=== PATIENT | male | born 1980 | race Caucasian/White ===

== ENCOUNTER → 2023-04-10 | Outpatient (CLI) | payer OTHER, SELFPAY ==
[2023-04-10 12:20] LABS: Absolute Lymphocyte Count 2.61 X10^3/uL (0.83-4.51); Absolute Neutrophil Count 3.3 X10^3/uL (2.0-7.7); Basophil# 0.03 X10^3/uL; Basophil% 0.4 % (0-1); Eosinophil# 0.11 X10^3/uL; Eosinophils% 1.6 % (0-5); Hematocrit 43.6 % (40-54); Hemoglobin 14.7 g/dL (13.0-16.5); Lymphocyte # 2.61 X10^3/ul (0.83-4.51); Lymphocyte % 39.1 % (19-41); Mean Corp Hgb Conc 33.7 g/dL (32-36); Mean Corpuscular Hgb 30.7 pg (27.0-32.0); Mean Platelet Vol. 9.3 fl (6.2-12.0); Monocyte# 0.58 X10^3/uL; Monocyte% 8.7 % (0-10); NRBC Flagged by Analyzer 0 % (0-5); Neutrophil # 3.33 X10^3/uL (2.7-7.7); Neutrophil % 50.1 % (47-70); Platelet Count 188 K/mm3 (150-450); RBC Distribution Width CV 12.4 % (11.6-14.6); RBC Distribution Width SD 41.5 fl (35.1-43.9); Red Blood Count 4.79 M/mm3 (4.6-6.2); White Blood Count 6.7 K/mm3 (4.4-11.0)
[2023-04-10 12:54] LABS: Vitamin D,25 Hydroxy 23.4 ng/mL
[2023-04-10 12:56] LABS: ALB/GLOB Ratio 1.1 RATIO (0.9-2.4); AST(SGOT) 33 U/L (15-37); Alanine Aminotransfer ALT/SGPT 64 U/L (16-61); Albumin, Serum 3.8 g/dL (3.2-5.0); Alkaline Phosphatase 36 U/L (45-117); Anion Gap 6 (5-15); BUN 16 mg/dL (7-18); BUN/Creat Ratio 14.3 RATIO (10-20); Calcium,Total 9.4 mg/dL (8.5-10.1); Chloride 106 mmol/L (98-107); Cholesterol 179 mg/dL (200); Creatinine, Serum 1.12 mg/dL (0.70-1.30); EST Glomerular Filtration Rate 76 mL/min (>60); Est Glom Filt Rate - Afr Amer 92 mL/min (>60); Globulin 3.5 g/dL (2.2-4.2); Glucose 94 mg/dL (74-106); High Density Lipoprotein 35 mg/dL; Potassium 4.3 mmol/L (3.5-5.1); Protein, Total 7.3 g/dL (6.4-8.2); Sodium Level 139 mmol/L (136-145); Triglycerides 295 mg/dL; Very Low Density Lipoprotein 59 mg/dL (5-40)
== END | disposition home or self-care (01) ==
LOC: LAB 11:51
PROVIDERS: PCP Internal Medicine; Visit Provider Internal Medicine
DX: Z00.00 Encounter for general adult medical examination without abnormal findings (principal); Z13.220 Encounter for screening for lipoid disorders; E55.9 Vitamin D deficiency, unspecified
CPT/HCPCS: 36415; 80053; 80061; 82306; 85025

== ENCOUNTER → 2023-05-08 | Outpatient (CLI) | payer OTHER, SELFPAY ==
[2023-05-08 15:02] LABS: Bacteria 0 SEEN /hpf (None Seen); Mucous, Urine 0 SEEN /hpf (<or=2+); Red Blood Cells-Urine 0 SEEN /hpf (0-5); Squamous Epithelial Cells - UA 0 SEEN /hpf (0-5); White Blood Cells 0 SEEN /hpf (0-5)
--- NOTE | 2023-05-08 15:11 | CT_ITS ---
STUDY: CT ABDOMEN AND PELVIS WITH CONTRAST REASON FOR EXAM: Male, 43 years old. Abdominal pain RADIATION DOSAGE (If Supplied By Facility): CTDIvol = ( 17.56 ) mGy, DLP = ( 1393.98 ) mGycm TECHNIQUE: Oral and amp; IV Gastrografin and amp; 100mL Isovue-370 was administered. Transaxial images were obtained from the dome of the diaphragm to the symphysis pubis. Multiplanar coronal and sagittal images were reformatted. Individualized Dose Optimization Techniques Were Used For This CT. COMPARISON: None FINDINGS: 4 mm right lower lobe subpleural nodule. The visualized portions of the heart are within normal limits. Hypoenhancing liver. Normal gallbladder and extrahepatic biliary system. Normal spleen. Normal pancreas. Normal bilateral adrenal glands. Normal visualized stomach. Normal small intestine. Normal colon. The appendix is visualized and appears normal. Normal abdominal aorta. No retroperitoneal adenopathy. Normal right kidney. Normal left kidney. Normal urinary bladder. Normal visualized prostate gland. Normal abdominal wall. Normal thoracolumbar vertebral alignment. CT/Abdomen/Pelvis WITH Contrast IMPRESSION: 4 mm right lower lobe subpleural nodule. Follow up chest CT in 12 months if patient is at increased risk for lung cancer. No acute abnormal finding in the abdomen or pelvis. Electronically Signed: Davidson Lee MD at 18:06 EDT ,
[2023-05-08 15:23] LABS: Color, Urine Yellow (Yellow); Glucose, Dipstick Normal (Normal); Ketone-Dipstick Negative (Negative); Leukocyte Esterase-Dipstick Negative /ul (Negative); Nitrite-Dipstick Negative (Negative); Occult Blood-Urine Negative /ul (Negative); Protein-Dipstick Negative (Negative); Urine Bilirubin Dipstick Negative (Negative); Urine Clarity Sl. Cloudy (Clear); Urine Urobilinogen Normal (Normal); Urine pH 6.5 (5.0 - 8.0)
== END | disposition home or self-care (01) ==
LOC: CT 14:58
PROVIDERS: PCP Internal Medicine; Referring Provider Surgery; Visit Provider Surgery
DX: R10.9 Unspecified abdominal pain (principal)
CPT/HCPCS: 74177; 81001; Q9967

== ENCOUNTER 2023-05-23 11:01 | Day surgery (SDC) | payer OTHER, SELFPAY ==
--- NOTE | 2023-05-21 07:01 | EKG12_ITS ---
Test Reason : PREOP Blood Pressure : / mmHG Vent. Rate : 056 BPM Atrial Rate : 056 BPM P-R Int : 140 ms QRS Dur : 086 ms QT Int : 386 ms P-R-T Axes : 015 -14 004 degrees QTc Int : 372 ms Sinus bradycardia Otherwise normal ECG Confirmed by YOLIE BARTON, REHANA ([id number]), editorial specialist FRANCISCO J DUQUE ([id number]) on 05/21/2023 1:32:39 PM Referred By: Michele Foss Confirmed By:REHANA URBANO MD
[2023-05-23] VITALS (9 sets, daily range): BP systolic 104–124; BP diastolic 60–80; PULSE 60–88; RESP 14–18; TEMP 36.5–36.8; O2SAT 93–100; BMI 31.6
--- NOTE | 2023-05-23 | HERN_PTH ---
PATIENT: SNEHA GARIBAY LOC: [facility] [place] U#:[id number] AGE/SX: 43/M ROOM: RE05/23/[address]: Dr. Michele Foss MD : 1980 BED: DIS: 05/23/2023 SPEC #: [id number] RECD: 05/23/23 15:32 STATUS: SARAH SALTY #: [id number] BRICE: 05/23/23 00:[address]: Michele Foss DEPT: SURGICAL PATHOLOGY RECD BY: Dylon Cai ENTERED: 05/24/23 13:09 SP TYPE: Hernia OTHR DR: Dr. Grace Barroso MD Tissues: HERNIA Procedures: Surgery Specimen Level II HEADER OPERATION: Incarcerated umbilical hernia repair with mesh PRE-OP DIAGNOSIS: Umbilical hernia TISSUE SUBMITTED: Incarcerated hernia and contents MICROSCOPIC DIAGNOSIS Umbilical hernia and contents: Fibroadipose and fibroconnective tissue, consistent with hernia sac. SJ: 05/25/2023 MICROSCOPIC DESCRIPTION Slides are reviewed. GROSS DESCRIPTION Received is one container labeled with the patient name and designated incarcerated hernia and contents. The specimen consists of one irregular piece of yellow adipose tissue that measures 5 x 3 x 2 cm. No mass lesion is identified. Design Analyst sections are submitted in one cassette. /SJ:cc 05/24/23 TC:5 CPT: 74960
--- NOTE | 2023-05-23 11:14 | HP.PCM_ITS ---
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 Accompanied by: Is patient in pain?: No Allergies No Known Allergies Allergy (Unverified 05/08/23 14:23) Medications clotrimazole-betamethasone 1 %-0.05 % topical cream 1 applic topical BID #15 grams 04/05/23 [Rx Confirmed 05/08/23] vitamin d3 PO 04/11/23 [History Confirmed 05/08/23] PFSH Medical History (Updated 05/08/23 @ 14:38 by Becky García) Abdominal pain Umbilical hernia Surgical History (Updated 05/08/23 @ 14:21 by Becky García) No history of previous surgery Social History (Updated 04/05/23 @ 15:29 by Darío Cisneros) adopted: No household members: spouse, family and children housing: house number of children: 4 current occupational status: employed current occupation: self employed business senior engineering technician current occupational exposures/hazards: No pets and animals: No leisure activities: fishing history of recent travel: No sexually active: Yes Smoking Status: Former smoker alcohol intake: current details: recreational on weekends substance use type: does not use well-balanced diet: daily or most days caffeine: Yes eating out: 4 or more times/week during the past year weight has: remained stable what type of physical activity do you participate in: walking and other details: work related seatbelt use: always do you feel safe at home: Yes HPI HPI HPI: 43-year-old female is being referred by Dr. Grace Barroso for surgical consultation regarding an umbilical hernia. A written compromise surgical consult recommendations will return to him. The hernia has been progressively enlarging. Intermittently uncomfortable. She is working with Dr. Grace Barroso on improving her diet and weight loss. For at least 2 years the patient has had an umbilical hernia. He was referred for elective treatment and repair. It is of note however that just last night inferior to his known hernia which she can reduce an area popped up that is tender. There is been no drainage or bleeding. He states he has had no unusual manipulation. No recent trauma. No coughing or straining. No hematuria dysuria. Has never had a colonoscopy. No family history of colon cancer. No unexpected weight loss. No history of DVT. ROS General General: No weight change, appetite, fatigue, colon cancer, breast cancer or weakness HEENT HEENT: No difficulty swallowing, eye injury, eye surgery, swollen glands or hoarseness Endo Endocrine: No thyroid disease, diabetes mellitus, thyroid cancer, Hair loss, heat intolerance or cold intolerance Skin Skin: No rash or changing moles Breast Breast: No left breast lump, right breast lump, nipple discharge, breast pain, abnormal mammogram, abnormal US or breast enlargement Musc Musculoskeletal: No back problems, arthritis, rheumatoid arthritis, gout or joint pain Cardio Cardiovascular: No murmur, pacemaker, heart disease, atrial fibrillation, high blood pressure, heart attack, heart stent, palpitations, shortness of breat with exertion or chest pain Psych Psychiatric: No depression, anxiety or hearing voices Resp Respiratory: No shortness of breath, No sleep apnea, No cough, No COPD, No asthma, No emphysema and No wheezing Gastro Gastrointestinal: Yes abdominal pain, No nausea or vomiting, No diarrhea, No constipation, No blood in stool, No acid reflux, No hemorrhoids, No ulcers, No gallbladder problem and No black,tarry stools Chacorta Hematologic: No blood thinners, No blood disorders, No bleeding, No anemia and No blood clots Neuro Neurologic: No system reviewed and no additional complaints, except as documented, No as per HPI, No abnormal gait, No abnormal hearing, No abnormal movements, No abnormal speech, No behavioral changes, No burning sensations, No confusion, No convulsions, No disequilibrium, No dizziness, No localized weakness, No frequent falls, No headache(s), No lack of coordination, No loss of vision, No memory loss, No numbness, No other visual disturbances, No radicular pain, No restless legs, No sensory deficit, No syncope, No tingling, No tremor(s), No weakness and No other Exam Const General: cooperative, comfortable and no acute distress Nutritional Appearance: obese [facility] Head: normal to inspection Chest Chest palpation & inspection: normal inspection of the chest Resp Effort & Inspection: normal respiratory effort Auscultation: clear to auscultation bilaterally Cardio Rate: regular rate Rhythm: regular rhythm GI Other: Overweight, no hepatosplenomegaly, no particular focal tenderness, normal bowel sounds, obvious umbilical hernia at the superior aspect the umbilicus. Fascial defect there approximately centimeter and a half. Tissue still partially reducible. The inferior edge of the umbilicus there is an 8 x 5 mm area of firm slightly erythematous nonreducible dermal structure. Musc Cervical Spine: normal cervical lordosis Skin General: no rashes or lesions noted Neuro General: patient alert, patient awake and patient oriented x3 Extrem General: no calf tenderness Psych Appearance: grossly normal Assessment and Plan Assessment and Plan (1) Umbilical hernia: Status: Acute Plan: Umbilical hernia on the superior asked him the umbilicus. Acute onset just last night of a lesion on the inferior aspect the umbilicus. It is not clear to me whether this is a separate defect that has a small amount of fibrofatty tissue that is incarcerated and strangulated. The defect would be very small. Not sure whether this could somehow result represents some abdominal ascites although does not appear to be ascitic fluid in the partial reducible pull superior umbilical defect. Perhaps this represents a patent urachal sinus. I do not want to propose for him a simple direct umbilical herniorrhaphy without having better identification of what this acute onset structure represents. Recommend to him that we obtain a urinalysis as well as a CT. We will then have him return for that discussion. He is aware of my recommendations for an umbilical herniorrhaphy with mesh. This would be altered however if he would require a resection of his urachal sinus. We will try to expedite the urinalysis and CT imaging to further assist with this patient's diagnosis and definitive treatment. I appreciate the opportunity of assisting with the surgical care. Copy: Dr. Grace Foss M.D., F.A.C.S I anticipate based on CT that the patient has incarcerated preperitoneal fatty tissue. There was no evidence of a patent urachal duct. We will proceed with a direct approach to the umbilical herniorrhaphy with mesh. He is aware of the technique, benefit, risk and alternatives. We will proceed as noted. Michele Foss M.D., F.A.C.S.
--- NOTE | 2023-05-23 11:15 | DCINST_ITS ---
Discharge Instructions Procedure General Surgery Diet Discharge Diet: Light diet - advance as tolerated (if you have questions about your diet instructions, please talk to you doctor.) Activity Discharge Activity: May Not Drive (for 3-5 days or while taking narcotic pain medicine.) May shower in (days): 1 Lifting Restrictions: 10 pounds Dressing / Incision Call your doctor if your incision/area has: Continuous Slow Oozing, Sudden Increased Bleeding, Increased Pain/ Swelling, Increased Redness and Foul Smelling Discharge Call your doctor if you observe: Fever of 101 or Higher Suture Line Care: Avoid Pulling/Pushing and Avoid Pinching/Bending Additional Dressing/Incision Instructions:: Change or remove dressing in 4 days. Leave steri-strips in place for 1 week. Follow Up Care Please Follow Up With: Michele Foss MD When: Call [phone] to make an appointment to be seen in about 10 days. Test Results: Test results from this visit will be discussed in further detail at your follow- up appointment, if applicable. Discharge Plan Admission Attending Provider: Michele Foss Primary Care Provider: Grace Barroso Discharge Orders/Prescriptions Prescriptions: No Action clotrimazole-betamethasone 1-0.05 % cream 1 applic topical BID Qty: 15 1RF cholecalciferol (vitamin D3) [Vitamin D3] 25 mcg (1,000 unit) capsule 1,000 unit PO DAILY ibuprofen 800 mg tablet 800 mg PO Q8H PRN (Reason: pain) Referrals / Follow Up: Grace Barroso MD [Primary Care Provider] - Disposition Disposition (needs filled in before D/C Order can be placed): Home, Self Care
[2023-05-23] MEDS: Lactated Ringers 1,000 ML 15 ML IV (12:01)
[2023-05-23] MEDS: Cefazolin 2 GM in 0.9% Normal Saline 100 ML IV (13:01)
[2023-05-23] MEDS: Bupivacaine Mpf 0.5% 30 ML VIAL (13:42)
--- NOTE | 2023-05-23 14:00 | PCM.OPRPT ---
Report of Operation Date of Procedure: 05/23/23 Pre-Operative Diagnosis: Incarcerated umbilical hernia Post-Operative Diagnosis: Same Surgery/Procedure Performed:: Incarcerated 3 cm diameter umbilical herniorrhaphy with [address] hernia patch. Ventralex ST: Reference [id number], lot number [id number] UG are [id number], expiry date 02/07/2024 Description of Surgical Findings:: Timeout informed consent was obtained. 43-year-old gentleman was taken to the operating placed on the table underwent general tracheal intubation anesthesia. The abdomen was sterilely prepped and draped. He received 2 g of Ancef intravenously. 0.5% Marcaine was used as a local anesthetic. Throughout the procedure 30 cc was used. A curvilinear infraumbilical incision was created sharp dissection performed and incarcerated omentum was encountered within the umbilical hernia using electrocautery this had to be freed and a portion of the omentum was taken with the hernia sac and submitted to specimen. Hemostasis was intact. I then dissected free of the peritoneum to get a recto rectus space. I then placed a [address] mesh into that retrorectus space after having closed the peritoneum with a running 3-0 Vicryl. The tails of the mesh were secured in place with 0 Nurolon. Simple sutures were placed transversely to approximate the hernia and the anterior wall of the mesh was incorporated. Excellent positioning and securement was felt to been achieved. The subdermal tissues were approximated with interrupted 4-0 Monocryl. Surgical glue was applied. Cotton ball Telfa OpSite dressing. Sponge and instrument and needle counts were reported to the surgeon to be correct. Specimen: Hernia sac and contents. Drains none. Blood loss minimal. The patient was taken to the recovery area in satisfied condition without apparent complication Michele Foss M.D., F.A.C.S. Surgeon: Michele Foss Type of Anesthesia: General Anesthesiologist: Tali Murillo
[2023-05-23] MEDS: Acetaminophen 325 MG Tablet 650 MG PO (16:06)
--- NOTE | 2023-05-23 16:22 | SUR.PHASEII ---
DR GONZALEZ TO ROOM AND SPOKE WITH PT AND NURSE VERBAL ORDER GIVEN FOR DISCHARGE WHEN CRITERIA MET INCLUDING VOID.
== END 2023-05-23 20:09 | disposition home or self-care (01) ==
LOC: SDC 11:10 → AC 11:13
PROVIDERS: PCP Internal Medicine; Referring Provider Surgery; Visit Provider Surgery
PROC: (CPT 49592; principal; 2023-05-23 12:30)
DX: K42.9 Umbilical hernia without obstruction or gangrene (principal); Z87.891 Personal history of nicotine dependence
CPT/HCPCS: 49592; 00830; 88302; 93005; J7120; C1781; J2405

== ENCOUNTER → 2024-04-23 | Outpatient (CLI) | payer OTHER, SELFPAY ==
--- NOTE | 2024-04-23 17:55 | CT_ITS ---
STUDY: CT CHEST WITH CONTRAST REASON FOR EXAM: Male, 44 years old. Follow-up right subpleural nodule, 4 mm (CT 05/04) RADIATION DOSAGE (If Supplied By Facility): CTDIvol = ( 15.44 ) mGy, DLP = ( 603.58 ) mGycm TECHNIQUE: Transaxial imaging was performed following intravenous administration of IV 100mL Isovue-370. Multiplanar coronal and sagittal images were reformatted. Individualized dose optimization techniques were used for this CT. COMPARISON: Comparison is made with prior CT scan abdomen and pelvis dated May 08, 2023. FINDINGS: CHEST Small benign-appearing bilateral axillary lymph nodes. Slightly more prominent on the right side. Stable 4 mm noncalcified nodule in the peripheral lateral aspect of the right lower lobe as seen on axial image #13. There is no demonstrated pleural abnormality. Normal heart and pericardium. Normal mediastinum. Normal hilar regions. Normal unenhanced pulmonary arteries. Normal aorta arch and descending thoracic aorta. There are degenerative changes of the thoracic spine. Diffuse fatty infiltration. CT/Chest WITH Contrast IMPRESSION: Stable 4 mm noncalcified nodule in the peripheral lateral aspect of the right lower lobe. No radiological follow-up needed. Diffuse fatty infiltration of the liver. Electronically Signed: Kelvin Ballard MD at 9:08 EDT ,
== END | disposition home or self-care (01) ==
PROVIDERS: PCP Internal Medicine; Referring Provider Internal Medicine; Visit Provider Internal Medicine
DX: R22.2 Localized swelling, mass and lump, trunk (principal)
CPT/HCPCS: 71260; Q9967